=== PATIENT | male | born 2000 | race Caucasian/White ===

== ENCOUNTER 2025-01-27 13:07 | Emergency (ER) | payer BC, SELFPAY ==
[2025-01-27 13:19] VITALS: BP 131/71; PULSE 62; RESP 18; TEMP 37; O2SAT 98
--- NOTE | 2025-01-27 13:28 | ED_ITS ---
HPI - Skin/Abscess/Foreign Bdy General Chief complaint: Skin/Abscess/Foreign Body Stated complaint: Insect Bite Time Seen by Provider: 01/27/25 13:36 Source: patient and RN notes reviewed Mode of arrival: ambulatory Limitations: no limitations History of Present Illness HPI narrative: 24-year-old male presents concern for rash for almost 2 months. Reports he was in [place] staying an Airbnb in the beginning of December, reports he mostly was inside and not doing many outdoor activities. He denies having any tick bites, or other insect bites that he noticed of the time, he did not pull any take off of him at any time. He reports the spots were on his torso and over the last 2 months have spread down to his lower legs. He reports that old spots are not itchy, the new spots are slightly itchy. They all get inflamed when he is hot, working out, taking hot showers or wearing tight clothes. He has tried Benadryl without relief. He denies fever, body aches, chills, sweats, new oral lesions or mucosal involvement. MD complaint: rash Related Data Allergies Allergy/AdvReac Type Severity Reaction Status Date / Time No Known Allergies Allergy Verified 01/27/25 13:08 Review of Systems Review of Systems: CONSTITUTIONAL: Denies malaise, chills, sweats, or fever. EYES: Denies redness, or discharge. ENT: Denies rhinorrhea, congestion, swollen lips, swollen tongue CARDIOVASCULAR: Denies chest pain, palpitations, or edema. RESPIRATORY: Denies cough or dyspnea. GASTROINTESTINAL: Denies abdominal pain, nausea, vomiting SKIN: Reports rash MUSCULOSKELETAL: Denies joint pain or myalgia. NEUROLOGIC: Denies headache. All systems reviewed & are unremarkable except as noted in HPI and below PMFSH Comments At time of signature, agree with nursing past medical, surgical, social and family history. There is no relevant family history pertinent to the presenting complaint Exam Narrative: GENERAL: Well-appearing, well-nourished, and in no acute distress. HEAD: Normocephalic, atraumatic. EYES: PERRLA, conjunctivae clear, and EOMI. ENT: Mucous membranes moist. Oropharynx without edema, erythema or lesions. NECK: Supple. No lymphadenopathy CHEST: Clear to auscultation. No respiratory distress. HEART: Regular rate and rhythm. SKIN: Warm, dry. Very few, discrete mildly erythematous papules noted to the trunk, less than 20 on the trunk, very to use discrete mildly erythematous papules noted to lower legs, less than 10 NEURO: Alert and oriented x3. PSYCH: Normal mood and affect Course Course Emergency Course: Patient is aware of diagnosis, understands and agrees to treatment plan. Anticipatory guidance given. Patient agrees to follow-up as directed and is aware of reasons to seek care at the emergency department. Portions of this record may have been created with voice recognition software Level of Care: Express Care Visit Vital Signs Vital signs: Vital Signs Temperature 98.6 F 01/27/25 13:19 Pulse Rate 62 01/27/25 13:19 Respiratory Rate 18 01/27/25 13:19 Blood Pressure 131/71 01/27/25 13:19 Pulse Oximetry 98 01/27/25 13:19 Oxygen Delivery Room Air 01/27/25 13:19 Temperature 98.6 F 01/27/25 13:19 Pulse Rate 62 01/27/25 13:19 Respiratory Rate 18 01/27/25 13:19 Blood Pressure 131/71 01/27/25 13:19 Pulse Oximetry 98 01/27/25 13:19 Oxygen Delivery Room Air 01/27/25 13:19 Reviewed. MDM - Skin/Abscess/Foreign Bdy MDM Narrative Medical decision making narrative: Does not appear at this time to be erythema multiforme, bullous, SJS, TEN; no evidence at this time to suggest RMSF, endocarditis or Lyme disease; patient looks well, nontoxic and is tolerating oral intake; no neurologic signs or symptoms; no headache, photophobia or neck pain; afebrile; appropriate for initial outpatient treatment; discussed the importance of follow-up, patient agrees; question, viral exanthema, contact dermatitis, allergic dermatitis, eczema, urticaria, recommends spotted fever, Lyme disease, lichen nitidus, keratosis pilaris. No soft palate or uvula edema, no tongue, lip edema or other mucosal involvement, no respiratory compromise, no stridor, no wheezing, no wheezing, no history of syncope, no hypotension, no nausea, vomiting, or diarrhea. Instructed patient to go to nearest ER immediately for any worsening symptoms including but not limited to: fever, spreading rash, pain, sore throat, headache, dizziness, chest pain, trouble breathing, or any symptoms concerning to the patient. Critical Care Time Critical Care Time Critical Care Time: No Discharge Plan Discharge Clinical Impression: Acute eruption of skin Patient Disposition: Home Condition: Stable Instructions: Acute Rash (ED) Additional Instructions: The 2 most likely things causing your rash are Lichen nitidus or Keratosis pilaris. Both of these can be treated a topical cream. However without further testing these cannot be diagnosed definitively. Please follow-up with your primary care doctor for further evaluation. Use medication as prescribed in the can take a daily antihistamine such as Zyrtec as needed for itching. If you develops symptoms such as fever, body aches, sores in her mouth you should see your doctor right away. If you have any urgent concerns you should go to the emergency room Patient Language: Jamaican Prescriptions: New triamcinolone acetonide 0.1 % cream 1 applic TOPICAL BID 7 Days Qty: 80 0RF Follow-up/Referrals: PHYSICIAN,DIRECTOR [employer]ES [employer]ING [Primary Care Provider, Internal Medicine] Time of Disposition: 13:45
== END 2025-01-27 13:55 | disposition home or self-care (01) ==
PROVIDERS: Emergency Provider Nurse Practitioner
DX: R21 Rash and other nonspecific skin eruption (principal)
CPT/HCPCS: 99203; G0463